=== PATIENT | female | born 2000 | race Caucasian/White ===

== ENCOUNTER 2018-04-05 21:24 | Emergency (ER) | payer OTHER ==
[~2018-04-05] VITALS: Ht 154.9 cm; Wt 75.9 kg
[~2018-04-05 21:24] MED LIST: AMT50 PO; DEXL60CA4 PO; ONDA4TAB10 SL; PARO1TAB27 PO
[2018-04-05 21:27] VITALS: TEMP 36.6; Ht 154.9 cm; Wt 75.9 kg
[2018-04-05] MEDS ORDERED: SODIUM CHLORIDE 0.9% 1000ML 1,000 ML IV STA ×2 (21:47→21:51)
[2018-04-05] MEDS ORDERED: ONDANSETRON INJ 2 MG/ML 2 ML VIAL IV STA (21:51)
[2018-04-05] MEDS ORDERED: OPTIRAY 320 IV PRN (22:00)
[2018-04-05] MEDS ORDERED: FLUO20CA35 PO (22:25)
[2018-04-05 22:28] LABS: BASO % 0.5 %; BASO ABS # 0.03 K/uL (0-0.2); EOS % 1.8 %; HEMATOCRIT 40.9 % (37-47); IG# 0.01 K/uL (0.00-0.02); LYMPH % 41.7 %; LYMPH ABS # 2.35 K/uL (1.2-3.4); MEAN CELL VOLUME 84.3 fL (80-100); MEAN CORPUSCULAR HEMOGLOBIN 26.8 pg (25-34); MEAN CORPUSCULAR HGB CONC 31.8 g/dl (32-36); MEAN PLATELET VOLUME 9.8 fL (7.4-10.4); MONO % 14.2 %; NEUT % 41.6 %; NEUT ABS # 2.34 K/uL (1.4-6.5); PLATELET COUNT 318 K/uL (130-400); RED CELL DISTRIBUTION WIDTH CV 13.2 % (11.5-14.5); RED CELL DISTRIBUTION WIDTH SD 40.5 fL (36.4-46.3); WHITE BLOOD COUNT 5.63 K/uL (4.8-10.8)
[2018-04-05] MEDS ORDERED: ETON1IMP2 (22:31)
[2018-04-05 22:46] LABS: ALBUMIN 3.7 gm/dl (3.4-5.0); CALCIUM 9.4 mg/dl (8.5-10.1); CREATININE 0.69 mg/dl (0.60-1.20); POTASSIUM 3.6 mmol/L (3.5-5.1); TOTAL PROTEIN 7.8 gm/dl (6.4-8.2)
[2018-04-06 00:12] VITALS: BP 109/65; PULSE 96; O2SAT 100
--- NOTE | 2018-04-06 01:28 | EMERGENCY ROOM VISIT NOTE ---
History Report prepared by Arielleibszuy: Whit Ramirez Under the Supervision of: Dr. Sandeep Mead D.O. First contact with patient: 21:38 Chief Complaint: ABDOMINAL PAIN Stated Complaint: ABD PAIN, PASSING BILE, WAVES OF STOMACH CRAMPS History of Present Illness The patient is a 17 year old female who presents to the Emergency Room with complaints of intermittent waves of abdominal pain that waxes and wanes in intensity beginning 4 or 5 days ago. She notes she began experiencing abdominal cramping beginning 2 days ago. She states her bowel movements have been entirely liquid for 4 days, and are either thomas, brown, or light yellow in color. She denies any blood in her stool, pain or burning with urination, or vaginal discharge. The patient notes a history of colitis, which she says was controlled by diet until 2 months ago. She reports her father has Crohn's, and she has had symptoms her whole life, but has never been tested for Crohn's. The patient notes some vaginal bleeding which has since resolved, and notes she has had a Nexplanon since April and does not get her period. She denies any urinary frequency or urgency. She currently has no abdominal pain at this time. Prior to arrival it was in the epigastric region. Source of History: patient Onset: 4 or 5 days ago Position: abdomen (lower) Timing: intermittent, waxes/wanes, other (waves) Associated Symptoms: + diarrhea, No melena, No urinary symptoms Note: Associated symptom: abdominal cramping. Denies: vaginal discharge Review of Systems See HPI for pertinent positives & negatives. A total of 10 systems reviewed and were otherwise negative. Past Medical & Surgical Medical Problems: (1) No significant active problems Surgical Problems: (1) No significant past surgical history Family History FHx: Crohn's disease Social History Smoking Status: Never Smoker Marital Status: single Housing Status: lives with friends Occupation Status: Departing student Current/Historical Medications Scheduled Amitriptyline Hcl (Elavil), 25 MG PO DAILY Dexlansoprazole (Dexilant), 60 MG PO DAILY Etonogestrel (Nexplanon), 1 DOSE UD Fluoxetine (Prozac), 20 MG PO DAILY Ondasetron Odt (Zofran Odt), 4 MG SL Q6H Allergies Coded Allergies: No Known Allergies (Unverified , 04/05/18) Physical Exam Vital Signs Date Time Temp Pulse Resp B/P (MAP) Pulse Ox O2 Delivery O2 Flow Rate FiO2 04/06/18 00:12 96 18 109/65 100 Room Air 04/06/18 00:12 98 16 126/80 99 04/05/18 23:10 87 16 93/65 100 Room Air 04/05/18 21:27 36.6 95 18 121/78 95 Room Air Physical Exam GENERAL: Sitting up in bed, alert, well appearing, well nourished, no distress, non-toxic EYE EXAM: normal conjunctiva. OROPHARYNX: no exudate, no erythema, lips, buccal mucosa, and tongue normal and mucous membranes are moist NECK: supple, no nuchal rigidity, no adenopathy, non-tender LUNGS: Clear to auscultation. Normal chest wall mechanics HEART: no murmurs, S1 normal and S2 normal ABDOMEN: abdomen soft, normo-active bowel sounds, no masses, no rebound or guarding. minimal tenderness in subxiphoid reason. BACK: Back is symmetrical on inspection and there is no deformity, no midline tenderness, no CVA tenderness. SKIN: no rashes and no bruising UPPER EXTREMITIES: upper extremities are grossly normal. LOWER EXTREMITIES: No pitting edema. NEURO EXAM: Normal sensorium, cranial nerves II-XII grossly intact, normal speech, no gross weakness of arms, no gross weakness of legs. Medical Decision & Procedures ER Provider Diagnostic Interpretation: Radiology results as stated below per my review and the radiologist's interpretation: CT ABDOMEN & PELVIS With Contrast: Colon is under distended and probably mildly thickened. Consider some form of colitis in the proper clinical setting. Unremarkable appendix. Mesenteric nodes. Solid organs within normal limits. Laboratory Results 04/05/18 22:15 Red Blood Count 4.85, Mean Corpuscular Volume 84.3, Mean Corpuscular Hemoglobin 26.8, Mean Corpuscular Hemoglobin Concent 31.8, Mean Platelet Volume 9.8, Neutrophils (%) (Auto) 41.6, Lymphocytes (%) (Auto) 41.7, Monocytes (%) (Auto) 14.2, Eosinophils (%) (Auto) 1.8, Basophils (%) (Auto) 0.5, Neutrophils # (Auto ) 2.34, Lymphocytes # (Auto) 2.35, Monocytes # (Auto) 0.80, Eosinophils # (Auto ) 0.10, Basophils # (Auto) 0.03 04/05/18 22:15 Test 04/05/18 22:15 White Blood Count 5.63 K/uL (4.8-10.8) Red Blood Count 4.85 M/uL (4.2-5.4) Hemoglobin 13.0 g/dL (12.0-16.0) Hematocrit 40.9 % (37-47) Mean Corpuscular Volume 84.3 fL (80-100) Mean Corpuscular Hemoglobin 26.8 pg (25-34) Mean Corpuscular Hemoglobin Concent 31.8 g/dl (32-36) Platelet Count 318 K/uL (130-400) Mean Platelet Volume 9.8 fL (7.4-10.4) Neutrophils (%) (Auto) 41.6 % Lymphocytes (%) (Auto) 41.7 % Monocytes (%) (Auto) 14.2 % Eosinophils (%) (Auto) 1.8 % Basophils (%) (Auto) 0.5 % Neutrophils # (Auto) 2.34 K/uL (1.4-6.5) Lymphocytes # (Auto) 2.35 K/uL (1.2-3.4) Monocytes # (Auto) 0.80 K/uL (0.11-0.59) Eosinophils # (Auto) 0.10 K/uL (0-0.5) Basophils # (Auto) 0.03 K/uL (0-0.2) RDW Standard Deviation 40.5 fL (36.4-46.3) RDW Coefficient of Variation 13.2 % (11.5-14.5) Immature Granulocyte % (Auto) 0.2 % Immature Granulocyte # (Auto) 0.01 K/uL (0.00-0.02) Anion Gap 8.0 mmol/L (3-11) Est Creatinine Clear Calc Drug Dose 122.2 ml/min Estimated GFR () 146.3 Estimated GFR (Non- 126.2 BUN/Creatinine Ratio 15.2 (10-20) Calcium Level 9.4 mg/dl (8.5-10.1) Total Bilirubin 0.4 mg/dl (0.2-1) Direct Bilirubin 0.1 mg/dl (0-0.2) Aspartate Amino Transf (AST/SGOT) 18 U/L (15-37) Alanine Aminotransferase (ALT/SGPT) 22 U/L (12-78) Alkaline Phosphatase 79 U/L (45-117) Total Protein 7.8 gm/dl (6.4-8.2) Albumin 3.7 gm/dl (3.4-5.0) Lipase 143 U/L (73-393) Laboratory results per my review. Medications Administered Medications (Trade) Dose Ordered Sig/Roberto Route Start Time Stop Time Status Last Admin Dose Admin Sodium Chloride 1,000 ml @ 999 mls/hr Q1H1M STAT IV 04/05/18 21:47 04/05/18 22:47 DC 04/05/18 22:14 999 MLS/HR Sodium Chloride 1,000 ml @ 999 mls/hr Q1H1M STAT IV 04/05/18 21:51 04/05/18 22:51 DC 04/05/18 22:15 999 MLS/HR Ondansetron HCl (Zofran Inj) 4 mg NOW STAT IV 04/05/18 21:51 04/05/18 21:52 DC 04/05/18 22:14 4 MG ED Course ED COURSE: Vital signs were reviewed and showed tachycardia and hypotension. The patients medical record was reviewed The above diagnostic studies were performed and reviewed. ED treatments and interventions as stated above. 2141: The patient was evaluated in room A2. A complete history and physical examination was performed. 2147: Ordered Sodium Chloride 1000 ml @ 999 mls/hr IV, Sodium Chloride 1000 ml @ 999 mls/hr IV, Zofran Inj 4 mg IV 2200: Ordered Ioversol 100 ml IV 2357: Patient's urine dip was negative, negative. 0004: Upon reevaluation, the patient is restign. I discussed my findings with the patient and she understands and agrees with the treatment plan. Based on the patients age, coexisting illnesses, exam and lab findings the decision to treat as an outpatient was made. The patient remained stable while under my care. The patient appeared well at the time of discharge. Medical Decision Differential diagnoses includes but is not limited to gastritis, peptic ulcer disease, GERD, gallbladder disease, pancreatitis, small bowel obstruction, acute coronary syndrome, pericarditis, ischemic bowel, irritable bowel disease, irritable bowel syndrome, appendicitis, diverticulitis, malignancy, hernia, urinary tract infection, torsion, /ectopic , perforation, trauma, infectious. Patient is a 17-year-old female who presents the ER for abdominal pain which currently has no pain at this time. She notes it has been coming and going intermittently. Abdominal exam is completely benign. Vitals show that she is slightly hypertensive but I do believe that this her typical blood pressure. CBC along with BMP, LFTs, bilirubin and lipase is unremarkable. Urine dip was negative and clean otherwise. CT abdomen pelvis was completely unremarkable with the possibility of under distention versus colitis. Patient has no pain at this time. She was discharged follow-up PCP as an outpatient. Discussed with Pt concerning signs and symptoms to watch out for. Pt was instructed to follow up with their PCP and discussed with the patient their option to return to the ED at anytime for persistent or worsening symptoms. The appropriate anticipatory guidance and out-patient management, including indications for return to the emergency department, were explained at length to the patient and understood. Medication Reconcilliation Current Medication List: was personally reviewed by me Blood Pressure Screening Patient's blood pressure: Low blood pressure Blood pressure disposition: Did not require urgent referral Impression Primary Impression: Abdominal pain Scribe Attestation The scribe's documentation has been prepared under my direction and personally reviewed by me in its entirety. I confirm that the note above accurately reflects all work, treatment, procedures, and medical decision making performed by me. Departure Information Referrals No Doctor, Assigned (PCP) Forms HOME CARE DOCUMENTATION FORM, IMPORTANT VISIT INFORMATION Patient Instructions My [facility] Additional Instructions Please follow up with your primary care doctor with in the next 24 hours. Any worsening of your symptoms, please return to the ED immediately. This includes any fevers greater than 100.4, worsening pain, chest pain, shortness breath, persistent nausea, vomiting, unable to eat or drink, or any other concerning signs or symptoms from your standpoint. Please take Tylenol or Motrin as needed for pain. Problem Qualifiers Primary Impression: Abdominal pain Abdominal location: unspecified location Qualified Codes: R10.9 - Unspecified abdominal pain
--- NOTE | 2018-04-06 07:24 | DIAGNOSTIC IMAGING REPORT ---
ABD/PELVIS IV CONTRAST ONLY CLINICAL HISTORY: 17 years-old Female presenting with abd pain . TECHNIQUE: Multidetector CT of the abdomen and pelvis was performed after the administration of intravenous contrast. IV contrast: 92 mL of Optiray 320. A dose lowering technique was used consistent with the principles of ALARA (as low as reasonably achievable). COMPARISON: None. CT DOSE (mGy.cm): The estimated cumulative dose is 528.97 mGy.cm. FINDINGS: Drying Machine Operator topogram: Unremarkable. Lung bases: Lungs and pleural spaces clear. Normal heart size. No pericardial or pleural effusion. Liver: Normal morphology. No liver lesion. Patent hepatic vasculature. Biliary: No intrahepatic or extrahepatic biliary ductal dilatation. Normal gallbladder. Pancreas: Normal. Spleen: Normal. Adrenal glands: Normal. Kidneys and ureters: Normal. No hydronephrosis. Bladder: Incompletely evaluated secondary to underdistention. Pelvic organs: Uterus and ovaries normal. Bowel: Prominence of intramural vasculature in the rectum may imply hemorrhoids. Alternatively, the appearance may be due to mucosal hyperenhancement. Mild wall thickening of the rectum and colon extending proximally to the splenic flexure. The appendix is normal. No bowel obstruction. No pericolonic or perienteric inflammatory change. Peritoneal cavity: No free fluid or intraperitoneal gas. Lymph nodes: No enlarged lymph nodes in the abdomen or pelvis. Vasculature: Aorta and IVC patent and normal in caliber. Abdominal wall: Normal. Musculoskeletal: Normal. IMPRESSION: 1. Findings suggest mild colitis extending from the splenic flexure through the rectum. Internal hemorrhoids versus mucosal hyperenhancement also be present the lower rectum. 2. No appendicitis. Electronically signed by: Naif Roberto M.D. 04/06/2018 7:23 AM Dictated Date/Time: 04/06/2018 7:17 AM
== END 2018-04-06 00:13 | disposition home or self-care (01) ==
LOC: C.EDB 21:26 → C.EDA 04-06 00:13
DX: R10.13 Epigastric pain (principal); Z79.3 Long term (current) use of hormonal contraceptives; Z83.79 Family history of other diseases of the digestive system